=== PATIENT | female | born 1990 | race Caucasian/White ===

== ENCOUNTER → 2016-11-09 | Outpatient (CLI) | payer BC ==
--- NOTE | 2016-11-09 10:59 | RADIOLOGY REPORT (SQ) ---
EXAM DESCRIPTION: U/S ABDOMEN LIMITED W/O DOP COMPLETED DATE/TIME: 11/09/2016 10:03 am REASON FOR STUDY: N/V (R11.2) R11.2 NAUSEA WITH VOMITING, UNSPECIFIED COMPARISON: CT chest 04/21/2009 TECHNIQUE: Dynamic and static grayscale images acquired of the abdomen and recorded on PACS. Additio nal selected color Doppler and spectral images recorded. LIMITATIONS: None. FINDINGS: PANCREAS: Midline pancreas unremarkable. LIVER: No masses. Echotexture normal. LIVER VASCULATURE: Normal directional flow of the main portal vein and hepatic veins. GALLBLADDER: No stones. Normal wall thickness. No pericholecystic fluid. ULTRASOUND-DETECTED ANAND'S SIGN: Negative. INTRAHEPATIC DUCTS AND COMMON DUCT: CBD and intrahepatic ducts normal caliber. No filling defects. INFERIOR VENA CAVA: Normal flow. AORTA: No aneurysm. RIGHT KIDNEY: Normal size. Normal echogenicity. No solid or suspicious masses. No hydronephrosis. No calcifications. PERITONEAL AND RIGHT PLEURAL SPACE: No ascites or effusions. OTHER: No other significant findings. IMPRESSION: NORMAL RIGHT UPPER QUADRANT ULTRASOUND. TECHNICAL DOCUMENTATION: JOB ID: [id number] [employer]- All Rights Reserved
== END ==
LOC: RAD 09:14
PROVIDERS: ATTEND Internal Medicine Gastroenterology
DX: R11.2 Nausea with vomiting, unspecified (principal)
CPT/HCPCS: 76705

== ENCOUNTER 2018-04-26 03:41 | Emergency (ER) | payer BC ==
[2018-04-26] MEDS ORDERED: IBUPROFEN 800 MG TABLET PO ONE (05:28)
[2018-04-26] MEDS ORDERED: CIPROFLOXACIN HCL/DEXAMETH OTIC DROP 7.5 ML AD ONE (06:33)
--- NOTE | 2018-04-26 06:38 | ER Document Report ---
HPI - HPI Patient complains to provider of: right ear pain Time Seen by Provider: 04/26/18 05:28 Pain Level: 3 Context: Patient is a 27-year-old female presents the emergency department for generalized right ear pain. Patient states a few days ago she feels as though she got a piece of her Q-tip stuck in her ear. States a family friend was able to fish out the Q-tip but since then she has had increased pain in the right ear. Patient has noted no discharge or fevers. Past medical history: Sd's Medications: Currently none Allergies: None - EENT EENT: REPORTS: Ear Pain - rt ear - REPRODUCTIVE Reproductive: DENIES: : Past Medical History - General Information source: Patient - Social History Smoking Status: Unknown if Ever Smoked Family History: Reviewed & Not Pertinent Patient has suicidal ideation: No Patient has homicidal ideation: No Pulmonary Medical History: Reports: Hx Asthma Neurological Medical History: Reports: Hx Migraine Renal/ Medical History: Reports: Hx Ovarian Cysts. Denies: Hx Peritoneal Dialysis Musculoskeletal Medical History: Reports Hx Musculoskeletal Trauma Psychiatric Medical History: Reports: Hx Bipolar Disorder Traumatic Medical History: Reports: Hx Fractures - Immunizations Immunizations up to date: Yes Hx Diphtheria, Pertussis, Tetanus Vaccination: Yes Hx Pneumococcal Vaccination: 01/02/11 Vertical Provider Document - CONSTITUTIONAL Agree With Documented VS: Yes Notes: GENERAL: Alert, interacts well. No acute distress. HEAD: Normocephalic, atraumatic. EYES: Pupils equal, round, and reactive to light. Extraocular movements intact. ENT: Oral mucosa moist, tongue midline. Nares patent, TM's intact bilaterally, right canal is swollen with no obvious debris, positive tragal tenderness. No mastoid erythema or tenderness noted. Patient's left TM and canal within normal limits. NECK: Full range of motion. Supple. Trachea midline. LUNGS: Clear to auscultation bilaterally, no wheezes, rales, or rhonchi. No respiratory distress. HEART: Regular rate and rhythm. No murmur ABDOMEN: Soft, non-tender. Non-distended. Bowel sounds present in all 4 quadrants. EXTREMITIES: Moves all 4 extremities spontaneously. No edema, normal radial and dorsalis pedis pulses bilaterally. No cyanosis. BACK: no cervical, thoracic, lumbar midline tenderness. No saddle anesthesia, normal distal neurovascular exam. NEUROLOGICAL: Alert and oriented x3. Normal speech. cranial nerves II through XII grossly intact PSYCH: Normal affect, normal mood. SKIN: Warm, dry, normal turgor. No rashes or lesions noted. - INFECTION CONTROL TRAVEL OUTSIDE OF THE [place] IN LAST 30 DAYS: No Course - Re-evaluation Re-evalutation: 04/26/18 06:36 Discussed diagnosis of otitis externa with patient at bedside. Will treat with antibiotic drops. Patient stable for discharge. - Vital Signs Vital signs: Temp Pulse Resp BP Pulse Ox 97.6 F 76 17 138/95 H 99 04/26/18 03:46 04/26/18 03:46 04/26/18 03:46 04/26/18 03:46 04/26/18 03:46 Discharge - Discharge Clinical Impression: Otitis externa Qualifiers: Otitis externa type: unspecified type Chronicity: acute Laterality: right Qualified Code(s): H60.501 - Unspecified acute noninfective otitis externa, right ear Condition: Stable Disposition: HOME, SELF-CARE Instructions: Use of Ear Drops ([facility]), Otitis Externa ([facility]) Additional Instructions: As we discussed you have been seen and treated in the emergency department for an outer ear infection. Please make sure you use antibiotic drops as prescribed. Make sure you follow-up with your primary care provider in the next 24-48 hours. Please also return to the emergency room should you have any other concerning symptoms. Prescriptions: Ciprofloxacin HCl/Dexameth [Ciprodex Otic Suspension 7.5 ml Bottle] 4 drop OT BID #1 bottle
[2018-04-26 07:14] VITALS: BP 122/77
== END 2018-04-26 07:11 | disposition home or self-care (01) ==
LOC: ER 03:41
DX: H60.501 Unspecified acute noninfective otitis externa, right ear (principal); H92.01 Otalgia, right ear; J45.909 Unspecified asthma, uncomplicated
CPT/HCPCS: 99282; J3490

== ENCOUNTER → 2019-05-29 | Outpatient (CLI) | payer BC ==
--- NOTE | 2019-05-29 08:21 | RADIOLOGY REPORT (SQ) ---
EXAM DESCRIPTION: U/S THYROID/SFT TISS HD NECK COMPLETED DATE/TIME: 05/29/2019 7:48 am REASON FOR STUDY: THYROID NODULE (E04.1) E04.1 NONTOXIC SINGLE THYROID NODULE COMPARISON: None. TECHNIQUE: Dynamic and static astorga-scale images acquired of the thyroid gland. Selected additional c olor/power Doppler images recorded. All images stored to PACS. LIMITATIONS: None. FINDINGS: RIGHT LOBE: The right lobe of the thyroid gland measures 4.6 x 1.5 x 2.0 cm, normal size. Diffuse heterogenous echotexture. In the mid pole a 1.2 x 0.8 x 1.1 cm nodule is suggested. LEFT LOBE: The left lobe of the thyroid gland measures 3.3 x 1.3 x 1.2 cm, normal size. Diffuse het erogenous echotexture. No cystic or solid masses. ISTHMUS: The isthmus is prominent in size and measures 8.0 mm in AP diameter. Heterogenous diffuse echotexture. No cystic or solid masses. OTHER: No other significant finding. IMPRESSION: 1. Diffuse heterogenous echotexture to the thyroid gland which limits detail. A right lobe thyroid nodule is suggested with measurements as above. Prominent appearing isthmus. Please se e comments below. COMMENT: RECOMMENDATIONS FOR THYROID NODULES 1 CM OR LARGER Solitary nodules: Microcalcifications - FNA if 1 cm or greater. Solid or coarse calcification - FNA if 1.5 cm or greater. Mixed Solid/Cystic or Cystic with Mural Nodule - FNA if 2 cm or greater. None of the above but substantial growth since previous - FNA. Cystic with none of the above features and no significant growth - no FNA. Multiple nodules: Use above criteria for selection of nodules to FNA/biopsy. Biopsy probably not necessary in enlarged gland with multiple nodules of similar appearance. Abnormal lymph nodes - FNA/biopsy. Reference: Management of Thyroid Nodules Detected at [place]: Society of Radiologists in Ultrasound Consensus Stateme nt. Radiology 2005; 237:794-800 TECHNICAL DOCUMENTATION: JOB ID: [id number] 2010 [employer]- All Rights Reserved Reading location - IP/workstation name: [email or web address]
== END ==
LOC: RAD 07:23
PROVIDERS: ATTEND Nurse Practitioner Family
DX: E04.1 Nontoxic single thyroid nodule (principal)
CPT/HCPCS: 76536

== ENCOUNTER 2019-12-29 10:47 | Emergency (ER) | payer BC ==
[2019-12-29] MEDS ORDERED: ACETAMINOPHEN 325 MG TABLET PO ONE (12:21)
--- NOTE | 2019-12-29 12:22 | ER Document Report ---
ED General - General Chief Complaint: Sore Throat Stated Complaint: VOMITING,DIARRHEA Time Seen by Provider: 12/29/19 11:36 Primary Care Provider: JANESSA CONDE NP [Primary Care Provider] - Follow up as needed Notes: This 29-year-old woman presents to the emergency department with a history of sore throat, nasal congestion and drainage, cough, loss of smell and taste. She is concerned that she may have contracted the coronavirus. She denies a known positive contact and denies any comorbidities. She complains of body aches and pains, denies fever or shortness of breath. TRAVEL OUTSIDE OF THE [place] IN LAST 30 DAYS: No - Related Data Allergies/Adverse Reactions: cefaclor [From [facility]] Allergy (Verified 04/15/15 13:04) Home Medications: Alavert, Prozac, Levothyroxine, Nasal spraydaily Past Medical History - Social History Smoking Status: Never Smoker Chew tobacco use (# tins/day): No Frequency of alcohol use: None Drug Abuse: None Family History: Reviewed & Not Pertinent Patient has homicidal ideation: No Pulmonary Medical History: Reports: Hx Asthma Neurological Medical History: Reports: Hx Migraine Renal/ Medical History: Reports: Hx Ovarian Cysts. Denies: Hx Peritoneal Dialysis Musculoskeletal Medical History: Reports Hx Musculoskeletal Trauma Psychiatric Medical History: Reports: Hx Bipolar Disorder Traumatic Medical History: Reports: Hx Fractures - Immunizations Immunizations up to date: Yes Hx Diphtheria, Pertussis, Tetanus Vaccination: Yes Hx Pneumococcal Vaccination: 01/02/11 Review of Systems - Review of Systems Notes: Constitutional: + Fever. HENT: Negative + sore throat, + nasal congestion. Eyes: Negative for visual changes. Cardiovascular: Negative for chest pain. Respiratory: Negative for shortness of breath. Gastrointestinal: Negative for abdominal pain, vomiting or diarrhea. Genitourinary: Negative for dysuria. Musculoskeletal: See HPI Skin: Negative for rash. Neurological: Negative for headaches, weakness or numbness. 10 point ROS negative except as marked above and in HPI. Physical Exam - Vital signs Vitals: Temp 99.1 F 12/29/19 10:48 - Notes Notes: PHYSICAL EXAMINATION: Physical Exam: General: Well-nourished [id number]-[id number]-[id number]-old female in no acute distress HEENT: NC/AT, pupils equal round and reactive to light, MM moist,nares clear, + nasal congestion, + mild erythema in the posterior pharynx, , airway patent Neck: supple, no adenopathy, no masses. Good range of motion Lungs: clear, no wheezing, no rales no rhonchi CVS: Regular rate and rhythm no murmur gallop or rub Abdomen: Soft, active, nontender, no masses, no hepatosplenomegaly Ext: No edema, clubbing or cyanosis. Neuro: Alert and responsive, moving all 4 extremities on command, cranial nerves intact, no focal findings Skin: Intact no open lesions, no rash PSYCH: Normal mood, normal affect. Course - Re-evaluation Re-evalutation: 12/29/19 13:27 A chest x-ray is performed which is negative for infiltrate, rapid strep also performed which is negative. The patient is being made a person of interest and a coronavirus test is being ordered. I explained to the patient that she will need to self quarantine until she receives the results of her test. Tylenol and or ibuprofen may be used for fever and body aches and pains. I encouraged the patient to push fluids and to follow-up as needed. - Vital Signs Vital signs: Temp Pulse Resp BP Pulse Ox 98.8 F 78 20 142/91 H 99 12/29/19 14:00 12/29/19 14:00 12/29/19 14:00 12/29/19 14:00 12/29/19 14:00 - Diagnostic Test Radiology reviewed: Image reviewed, Reports reviewed Radiology results interpreted by me: 12/29/19 13:32 Chest x-ray: No acute infiltrate. Discharge - Discharge Clinical Impression: Suspected 2019 novel coronavirus infection Pharyngitis, acute Qualifiers: Pharyngitis/tonsillitis etiology: other specified organisms Qualified Code(s): J02.8 - Acute pharyngitis due to other specified organisms Condition: Good Disposition: HOME, SELF-CARE Instructions: COVID-19 Guidance for Persons Under Investigation Additional Instructions: You were seen in the emergency department today with symptoms suggestive of a coronavirus infection. You were made a person of interest and you should self quarantine, social isolation until you receive your test results. Using a mask and socially distancing as well as good handwashing is important to reduce transmission of the virus or catching a virus. Use Tylenol or ibuprofen for fever and pain, please push fluids and stay well- hydrated you may use Zyrtec or Claritin for congestion, Robitussin or Mucinex for cough. HOME CARE INSTRUCTIONS & INFORMATION: Thank you for choosing us for your medical needs. We hope you're satisfied with the care you received. After you leave, you must properly care for your problem and, at the same time, observe its progress. Any condition can change. Some illnesses can change rapidly over hours or days. If your condition worsens, return to the Emergency Department or see your physician promptly. ABOUT YOUR X-RAYS AND EKG'S: If you had an EKG or X-rays taken, they have been read by the Emergency Physician. The X-rays and EKG's will also be read by a Radiologist or Airframe Technical Officer within 24 hours. If discrepancies are noted, you will be notified by telephone. Please be certain the ED has a correct telephone number & address where you can be reached. Also, realize that some fractures or abnormalities do not show up on initial X-rays. If your symptoms continue, see your physician. ABOUT YOUR LABORATORY TEST: If you had laboratory tests, the results have been reviewed by the Emergency Physician. Some test results (for example cultures) may not be available for several days. You will be contacted if any test result shows you need additional treatment. Please be certain the ED has a correct telephone number and address where you can be reached. ABOUT YOUR MEDICATIONS: You will receive instructions on how to take your medicine on the prescription label you receive. Additional information may be provided by the Pharmacy. If you have questions afterwards, call the ED for clarification or further instructions. Some prescribed medications may cause drowsiness. Do not perform tasks such as driving a car or operating machinery without consulting your Pharmacist. If you feel you need a refill of pain medication, your condition will need re-evaluation. Please do not call for a refill of any medication. ABOUT YOUR SIGNATURE: Signature of this document acknowledges to followin. Understanding that you received emergency treatment and that you may be released before al medical problems are known or treated. Please be certain t he ED has a correct phone number & address where you can be reached. 2. Acknowledgement that you will arrange for follow-up care as recommended. 3. Authorization for the Emergency Physician to provide information to your follow-up Physician in order to maximize your care. AT ANY TIME, IF YOUR SYMPTOMS CHANGE SIGNIFICANTLY OR WORSEN OR YOU DEVELOP NEW SYMPTOMS, RETURN TO THE EMERGENCY DEPARTMENT IMMEDIATELY FOR RE-EVALUATION. OUR GOAL IS TO PROVIDE EXCELLENT MEDICAL CARE! WE HOPE THAT WE HAVE MET YOUR EXPECTATIONS DURING YOUR EMERGENCY DEPARTMENT VISIT AND THAT YOU FEEL YOU HAVE RECEIVED EXCELLENT CARE! Referrals: JANESSA CONDE, [employer]/AIR OFFICER [Primary Care Provider] - Follow up as needed
--- NOTE | 2019-12-29 13:50 | RADIOLOGY REPORT (SQ) ---
EXAM DESCRIPTION: CHEST SINGLE VIEW IMAGES COMPLETED DATE/TIME: 12/29/2019 12:46 pm REASON FOR STUDY: Congestion and cough COMPARISON: None. TECHNIQUE: Single frontal radiographic view of the chest acquired. NUMBER OF VIEWS: One view. LIMITATIONS: None. FINDINGS: LUNGS AND PLEURA: No pneumothorax. No consolidation or pleural effusion. MEDIASTINUM AND HILAR STRUCTURES: No contour abnormalities. HEART AND VASCULAR STRUCTURES: Heart normal size. BONES: No acute findings. HARDWARE: None in the chest. OTHER: No other significant finding. IMPRESSION: NO ACUTE FINDINGS. TECHNICAL DOCUMENTATION: JOB ID: [id number] 2010 [employer]- All Rights Reserved Reading location - IP/workstation name: [email or web address]
[2019-12-29 14:58] VITALS: BP 139/92
== END 2019-12-29 14:58 | disposition home or self-care (01) ==
LOC: ER 10:47
DX: J02.8 Acute pharyngitis due to other specified organisms (principal); J02.9 Acute pharyngitis, unspecified; R11.10 Vomiting, unspecified; R19.7 Diarrhea, unspecified; R09.81 Nasal congestion; R05 Cough; R43.8 Other disturbances of smell and taste; R50.9 Fever, unspecified; Z20.828 Contact with and (suspected) exposure to other viral communicable diseases; Z88.1 Allergy status to other antibiotic agents; Z79.899 Other long term (current) drug therapy; J45.909 Unspecified asthma, uncomplicated
CPT/HCPCS: 99284; 87070; 87880; 71045; U0003; C9803; 87635

== ENCOUNTER → 2020-03-12 | Outpatient (CLI) | payer BC | LOC: OD 14:39 | PROVIDERS: ATTEND Otolaryngology | DX: Z09 Encounter for follow-up examination after completed treatment for conditions other than malignant neoplasm (principal); T48.5X5A Adverse effect of other anti-common-cold drugs, initial encounter | CPT/HCPCS: 36415; 82785; 86003 ==